=== PATIENT | male | born 1990 | race Caucasian/White ===

== ENCOUNTER 2024-03-25 08:22 | Observation (INO) ==
--- NOTE | 2024-03-20 14:27 | Anesthesiology Consultation ---
Date of Service March 20, 2024 Assessment & Plan (1) Encounter for pre-operative examination: - Infectious disease screening: Per assessment on 03/20/24: No known recent infectious disease contacts or current infectious disease symptoms. - Hx PONV: Per patient, good response with previous scope patch use. Will order scope patch for DOS. Chart Review Chart Review: Acceptable Risk for Surgery and Patient NOT seen in Pre Admission Testing Consults Requested none ASA ASA2 Proposed Anesthesia Anesthesia Type: General Risk / Benefits Reviewed With: PT / POA / Parent / Guardian, Accepts Plan and Informed Consent Obtained History Surgery Operation Date: 03/25/24 10:05 Proposed Procedures p L5-S1 Revision Discectomy, L5-S1 Lumbar Fusion, Spinal Cord Monitoring - Jimmy Mendoza DO Height/Weight Height: 6 ft Weight: 95.254 kg Allergies Allergy/AdvReac Type Severity Reaction Status Date / Time ciprofloxacin Allergy Severe Anaphylaxis Verified 03/25/24 08:42 Medications Home Medications Medication Instructions Recorded Confirmed Last Taken acetaminophen 500 mg tablet 1,000 mg PO Q6H PRN Pain 03/20/24 03/25/24 03/23/24 cholecalciferol (vitamin D3) 125 125 mcg PO QAM 03/20/24 03/25/24 03/24/24 08:00 mcg (5,000 unit) tablet (Vitamin D3) famotidine 40 mg tablet 40 mg PO DAILY PRN Acid Reflux 03/20/24 03/25/24 Unknown lisinopril 10 mg tablet 10 mg PO QAM 03/20/24 03/25/24 03/24/24 08:00 pantoprazole 40 mg tablet,delayed 40 mg PO QAM 03/20/24 03/25/24 03/24/24 08:00 release Active Medications Generic Name Dose Route Start Last Admin Trade Name Freq PRN Reason Stop Dose Admin Celecoxib 200 mg 03/25/24 06:00 03/25/24 09:03 Celebrex 200 Mg Cap PO 03/25/24 18:00 200 mg PREOP ETHAN Administration Gabapentin 300 mg 03/25/24 06:00 03/25/24 09:03 Gabapentin 300 Mg Cap PO 03/25/24 18:00 300 mg PREOP ETHAN Administration Lactated Ringer's 1,000 mls @ 15 mls/hr 03/25/24 06:00 03/25/24 09:03 Lr IV 03/26/24 05:59 15 mls/hr .Q24H ETHAN Administration Lactated Ringer's 1,000 mls @ 60 mls/hr 03/25/24 06:00 03/25/24 09:04 Lr IV 03/25/24 22:39 Not Given .[id number] ETHAN Scopolamine 1 patch 03/25/24 06:00 03/25/24 09:04 Scopolamine 1 Mg Tdsy TD 03/25/24 18:00 1 patch PREOP ETHAN Administration NPO Date Last Intake of Fluids: 03/25/24 Time Last Intake of Fluids: 07:00 Last Intake of Fluids Comment: sip water w/ meds Date Last Intake of Solids: 03/24/24 Time Last Intake of Solids: 23:00 Past Medical History Medical History Chronic back pain History of kidney stones Ulcerative colitis GERD (gastroesophageal reflux disease) Hypertension Exercise / Class Metabolic Activity II 4-5 Yardwork/Stairs/Walk up hill Past Family History Family History Other No family history of adverse response to anesthesia Past Surgical History Surgical History History of postoperative nausea and vomiting Previous scopolamine patch with most recent back surgery "and it worked w onderfully, I didn't get sick at all" History of surgery x3 Right 2nd/3rd digit repair (r/t table saw trauma) History of esophagogastroduodenoscopy (EGD) History of colonoscopy History of wisdom tooth extraction History of tonsillectomy History of lumbar discectomy 02/26/24, [facility] [employer] with Dr. Mendoza Past Anesthesia History No Hx of Anesthesia Complications and No Family Hx of Anesthesia Complications History of PONV No Hx of PONV and No Hx of Motion Sickness Social History Smoking Status: Never smoker Do You Dip or Chew Tobacco: No Hx Alcohol Use: Yes Alcohol type: beer alcohol intake frequency: holidays/special occasions only Hx Substance Use: No substance use type: does not use Physical Exam Vital Signs Last Vital Signs Temp 36.7 C 03/25/24 08:46 Pulse 96 H 03/25/24 08:46 Resp 20 08/14/24 08:46 BP 139/96 03/25/24 08:46 Pulse Ox 96 03/25/24 08:46 O2 Del Method Room Air 03/25/24 08:46 Constitutional no acute distress and not cachectic ENMT Mouth: no dentition abnormality Thyromental Distance: > or= 3.5 Finger Breadths Mallampati Class: II Neck normal visual inspection, trachea midline and + facial hair; neck extension not limited Respiratory normal respiratory effort Auscultation: lungs clear to auscultation bilaterally Cardiovascular Rate/Rhythm: regular rate and regular rhythm Heart Sounds: no murmur Vessels: no carotid bruit Musculoskeletal Spine: normal cervical ROM and no pain with cervical ROM Extremities: extremities normal to inspection; full ROM of extremities Neurologic moves all extremities Motor/Sensory: + sensory deficit Psychiatric Orientation: alert and oriented x 3 Testing Laboratory Results Blood Type O Positive 03/25/24 08:40 Antibody Screen NEGATIVE 03/25/24 08:40 7 WBC 5.63 H/H 14.8/44.5 PLATELETS 325 SODIUM 140 POTASSIUM 3.9 CHLORIDE 106 CO2 27.5 BUN 12.0 CREATINI1.00NE GLUCOSE 93 PT 12.6 INR 1.18 UA negative Electrocardiogram Date: 02/11/24 SR at 60bpm. NS TWA. "Similar to ECG 11/28/2022" per globe tester comparison. Chest X-Ray Date: 02/11/24 Findings: + NAD
[2024-03-25] MEDS ORDERED: fentaNYL citrate PF 100 MCG/2 ML VIAL ONE (08:27)
[2024-03-25] MEDS ORDERED: ONDANSETRON INJ 2 MG/ML 2 ML VIAL ONE (08:27)
[2024-03-25] MEDS ORDERED: DEXAMETHASONE SOD INJ 4 MG/ML VIAL ONE (08:27)
[2024-03-25] MEDS ORDERED: PROPOFOL IV EMULSION 10 MG/ML 20 ML VIAL IV ONE (08:27)
[2024-03-25] MEDS ORDERED: LIDOCAINE 2% 2 ML VIAL/AMP(20MG/ML) INFIL ONE (08:27)
[2024-03-25] MEDS ORDERED: ROCURONIUM BROMIDE 10 MG/ML 5 ML VIAL IV ONE (08:27)
[2024-03-25] MEDS ORDERED: KETAMINE HCL 10MG/ML SYR ONE (08:27)
[2024-03-25] MEDS ORDERED: MIDAZOLAM HCL 1 MG/ML 2ML VIAL ONE (08:27)
[2024-03-25] MEDS ORDERED: SUGAMMADEX SODIUM 200 MG/2 ML VIAL IV ONE (08:27)
[2024-03-25] MEDS: CeleBREX 200 MG CAP PO SCH (09:03)
[2024-03-25] MEDS: GABAPENTIN 300 MG CAP PO SCH (09:03)
[2024-03-25] MEDS: LR 15ML/HR IV SCH (09:03)
[2024-03-25] MEDS: Scopolamine 1 MG TDSY TD SCH (09:04)
[2024-03-25] MEDS: LR 60ML/HR IV SCH (09:04)
[2024-03-25] MEDS ORDERED: FLUMAZENIL 0.1 MG/1 ML 10 ML VIAL IV PRN (09:41)
[2024-03-25] MEDS ORDERED: NALOXONE HCL 0.4 MG/1 ML VIAL/CARP IV PRN ×2 (09:41→14:23)
[2024-03-25] MEDS ORDERED: ATROPINE SULFATE 0.1 MG/ML 10ML SYR IV PRN (09:41)
[2024-03-25] MEDS ORDERED: LABETALOL HCL IV 5 MG/ML 20ML IV PRN (09:41)
[2024-03-25] MEDS ORDERED: PROMETHAZINE HCL 6.25 MG in SODIUM CHLORIDE 0.9% 50 ML IV PRN (09:41)
[2024-03-25] MEDS ORDERED: ePHEDrine sulfate 50 MG/ML AMP IV PRN (09:41)
[2024-03-25] MEDS ORDERED: HYDROmorphone INJ 1 MG/ML SYRINGE IV PRN (09:41)
--- NOTE | 2024-03-25 10:18 | History & Physical Bridge Note ---
Date of Service March 25, 2024 History & Physical Bridge Note I have examined the patient, reviewed the History & Physical and in the interval since the performance of the History & Physical I have noted the following changes of clinical significance: no changes noted
--- NOTE | 2024-03-25 10:19 | History & Physical Report ---
Date of Service March 25, 2024 Assessment & Plan (1) Lumbar disc herniation with radiculopathy: Plan: Revision discectomy L5-S1 lumbar fusion L5-S1 History of Present Illness Chief Complaint: Back and left leg pain Primary Care Provider: RACHNA Newsome This is a 34-year-old male known to the presents with recurrent disc herniation is here for surgical invention. Allergies Allergy/AdvReac Type Severity Reaction Status Date / Time ciprofloxacin Allergy Severe Anaphylaxis Verified 03/25/24 08:42 Home Medications Medication Instructions Recorded Confirmed Type acetaminophen 500 mg tablet 1,000 mg PO Q6H PRN Pain 03/20/24 03/25/24 History cholecalciferol (vitamin D3) 125 125 mcg PO QAM 03/20/24 03/25/24 History mcg (5,000 unit) tablet (Vitamin D3) famotidine 40 mg tablet 40 mg PO DAILY PRN Acid Reflux 03/20/24 03/25/24 History lisinopril 10 mg tablet 10 mg PO QAM 03/20/24 03/25/24 History pantoprazole 40 mg tablet,delayed 40 mg PO QAM 03/20/24 03/25/24 History release Past Med/Surg History Problem List (Updated 03/25/24 @ 10:19 by Jimmy Mendoza DO) Lumbar disc herniation with radiculopathy Encounter for pre-operative examination Medical History Chronic back pain History of kidney stones Ulcerative colitis GERD (gastroesophageal reflux disease) Hypertension Surgical History History of postoperative nausea and vomiting Previous scopolamine patch with most recent back surgery "and it worked wonderfully, I didn't get sick at all" History of surgery x3 Right 2nd/3rd digit repair (r/t table saw trauma) History of esophagogastroduodenoscopy (EGD) History of colonoscopy History of wisdom tooth extraction History of tonsillectomy History of lumbar discectomy 02/26/24, [facility] [employer] with Dr. Mendoza Family History Other No family history of adverse response to anesthesia Social History Smoking Status: Never smoker Second Hand Exposure: No; Do You Dip or Chew Tobacco: No; Tobacco Cessation Education Requested by Patient: No Hx Alcohol Use: Yes Alcohol type: beer Hx Substance Use: No Preferred Language: Cook Islander Communication Ability: Effective Court Deputy Required: No Beliefs That Will Affect Care: None Current Living Situation: Spouse and Family Current Living Situation Comment: Lives with and 3 kids Other Information That Helps Us Care for You: No Feels Safe at Home: Yes Safety Concerns: Feels Safe At This Time Assistive Devices: None Physical Exam Physical Exam: Patient is alert and oriented heart regular in rhythm lungs clear Results & Data Results & Data Vital Signs (Past 12 Hours) Vital Signs Temp Pulse Resp BP Pulse Ox O2 Del Method 03/25/24 08:46 36.7 C 96 H 20 139/96 96 Room Air
[2024-03-25] MEDS: ceFAZolin 2000MG 2,000 MG/15 ML SYR IV SCH ×2 (10:42→18:02)
[2024-03-25] MEDS: BUPIVACAINE/EPINEPHRINE 0.25% 1:200,000 30 ML VIAL ONE (11:21)
[2024-03-25] MEDS: ceFAZolin 330 MG/ML 1 GM VIAL ONE (11:22)
[2024-03-25] MEDS ORDERED: PHENYLEPHRINE 100MCG/ML 10ML SYR IV ONE (11:57)
[2024-03-25] MEDS: FLOSEAL HEMOSTATIC MATRIX 10ML TOP ONE (12:27)
--- NOTE | 2024-03-25 12:44 | Operative Report ---
Post Operative Report Pre & Post Diagnosis Operation Date: 03/25/24 10:05 Pre-Op Diagnosis: Recurrent Herniation of Lumbar Disc Post-Op Diagnosis: Recurrent Herniation of Lumbar Disc I identified the patient and participated in the time-out.: Yes Procedure Operation Date: 03/25/24 10:05 Actual Procedures 1. Revision decompression with bilateral medial facetectomies and foraminotomies L5-S1. #2 posterior spinal fusion L5-S1. #3 placed posterior instrumentation L5-S1. #4 interbody fusion L5-S1. #5 placement Spira 13 x 26 mm x 2 at L5-S1. For 6 placement locally harvested morselized autograft and posterior gutters. #7 placement fusion collagen sponge, with Koros bone graft in the posterior lateral gutters and os design and interbody space. #8 place ment of versa wrap on the exposed dura. Surgeon Jimmy Mendoza DO Automatic Steel Tie Adjuster None Estimated Blood Loss 100 Findings Consistent with Post-Op Diagnosis Specimens None Indications This is a 34-year-old male who presents with recurrent disc herniation L5-S1 with severe pain and is here for surgical intervention. Description of Procedure Patient was met with identified informed consent obtained. Patient was then taken to the operative suite underwent a patient placed in a prone position on the Titi table on top of the Brad frame. All bony prominences well-padded eyes inspected to ensure no external pressure placed upon the. This point the lumbar spine was prepped and draped in normal sterile fashion. Utilizing pr evious incision site sharp dissection with assistance of Bovie cautery from down to and exposing the remaining lamina and transverse processes of L5 and the sacral ala bilaterally. Caballero cephalad fashion complete laminectomy of L5 was performed including bilateral medial facetectomies and foraminotomies dressing all lateral recess foraminal stenosis as well as a massive recurrent disc herniation on the left that had migrated out into the foramen. After complete decompression pedicle screws were placed in L5 and S1 was bilaterally with assistance of fluoroscopy and appropriate sized mckinley placed. By way the transforaminal approach on the left a discectomy of L5-S1 was performed endplates guided to subcortical bleeding bone and a 13 x 26 mm Spira cage filled with os design tapped in position. I then proceeded to the right transforaminal region at L5-S1. Discectomy performed. Endplates burred to subcortical bleeding bone and a second 13 x 26 mm Spira cage filled with os design bone graft tapped position. The rods then locked in final position bilaterally. The transverse processes of L5 and the sacral ala burred to subcortical bleeding bone. Infuse collagen sponge, with Koros and local autograft placed in the posterior lateral gutters. Versa wrap placed on the exposed dura. 15 round ELMER drain inserted. The incision was then closed with 1 Vicryl the fascia 2-0 Vicryl subcutaneously and 4 Monocryl for final skin closure. Steri-Strips sterile dressing placed. Patient waken taken PACU stable condition. Please note spinal cord monitoring was utilized at the procedure no changes noted. Im ordering 20 grams of Triple Peterson Collagen Powder ([employer] [id number]) to treat an incision wound that was caused by a spine procedure. The incision is approximately 2 cm(W) x 4 cm(L) into the joint (D) in size and is a full thickness wound. Triple Peterson collagen comes in 1 gram packets so 20 packets were ordered. Given the size of the wound, with light to moderate exudate I c hose to order a 20 day supply. The patient will be provided instructions for proper application of the collagen wound kit. The patient will be asked to apply the collagen powder daily and then cover it with sterile dressings dispensed. Collagen was selected as I expect the collagen to attract monocytes and fibroblasts, act as a sacrificial substrate for MMPs, and ultimately proved a matrix for tissue and vessel growth. The collagen will act as a primary dressing in this scenario. It is medically necessary for proper healing of these wounds to improve bioavailability and contact with each wound surface, this is also to help prevent infection of wounds and promote healing ultimately leading to a better healing outcome and limit the risk of infection. I attest to the content of the Intraoperative Record and any orders documented therein. Any exceptions are noted below.
[2024-03-25] MEDS: ONDANSETRON INJ 2 MG/ML 2 ML VIAL IV PRN ×2 (13:13→18:42)
[2024-03-25] MEDS: fentaNYL citrate PF 100 MCG/2 ML VIAL IV PRN (13:15)
--- NOTE | 2024-03-25 13:53 | Anesthesiology Progress Note ---
Date of Service March 25, 2024 Anesthesia Post Procedure Vital Signs Vital Signs: Temp Pulse Pulse Resp BP Pulse Ox O2 Del Method 03/25/24 13:45 88 18 126/73 96 Nasal Cannula 03/25/24 13:35 83 16 126/73 98 Nasal Cannula 03/25/24 13:25 90 20 124/72 98 Nasal Cannula 03/25/24 13:15 94 H 14 111/69 97 Nasal Cannula 03/25/24 13:05 83 20 111/62 97 Nasal Cannula 03/25/24 12:54 36.6 C 96 H 18 110/59 L 95 Nasal Cannula 03/25/24 08:46 36.7 C 96 H 20 139/96 96 Room Air O2 Flow Rate 03/25/24 13:45 2 03/25/24 13:35 2 03/25/24 13:25 4 03/25/24 13:15 4 03/25/24 13:05 4 03/25/24 12:54 4 03/25/24 08:46 Pain Intensity Left Leg: Pain Intensity: 6 Back: Pain Intensity: 9 Transfer of Care Handoff Completed per policy Notes Mental Status: alert / awake / arousable Patient Amnestic to Procedure: Yes Nausea / Vomiting: adequately controlled Pain: adequately controlled Airway Patency, RR, SpO2: stable & adequate BP & HR: stable & adequate Hydration State: stable & adequate Anesthetic Complications: no major complications apparent
--- NOTE | 2024-03-25 14:11 | Fluoroscopy Report ---
FL lumbar spine 2-3V CLINICAL HISTORY: L5-S1 DECOMPRESSION COMPARISON STUDY: None. FLUOROSCOPY TIME: 20 seconds. FLUOROSCOPY IMAGES: 2 Ka,r: 14.9 mGy FINDINGS: Posterior decompression and fusion at L5-S1 with pedicle screws and rods. Disc spacers are placed. The hardware is intact. IMPRESSION: Fluoroscopic assistance as above. ACT 112: Negative or not required by law. Electronically signed by: Frank Cosme M.D. 03/25/2024 2:08 PM
[2024-03-25] MEDS ORDERED: hydrOXYzine HCl 25 MG TAB PO PRN (14:23)
[2024-03-25] MEDS ORDERED: LORazepam 0.5 MG in SYRINGE 0.25 ML IV PRN (14:23)
[2024-03-25] MEDS ORDERED: diphenhydrAMINE Capsule 25 MG CAP PO PRN (14:23)
[2024-03-25] MEDS ORDERED: ACETAMINOPHEN 500 MG TAB PO PRN (14:23)
[2024-03-25] MEDS ORDERED: FAMOTIDINE 20 MG TAB PO PRN (14:23)
[2024-03-25] MEDS ORDERED: ALUMINUM/MAGNESIUM SUSP 30 ML UDC PO PRN (14:23)
[2024-03-25] MEDS ORDERED: METOCLOPRAMIDE HCL INJ 5 MG/ML 2 ML VIAL IV PRN (14:23)
[2024-03-25] MEDS ORDERED: PROMETHAZINE 12.5 MG/50.5 ML BAG IV PRN (14:23)
[2024-03-25] MEDS ORDERED: DO NOT ADMINISTER FLU VACCINE PRN (14:23)
[2024-03-25] MEDS ORDERED: SOD PHOSPHATE/SOD BIPHOSPHATE ENEMA 132 ML BTL PR PRN (14:23)
[2024-03-25] MEDS ORDERED: HYDROmorphone INJ 0.5 MG/0.5 ML SYR IV PRN (14:23)
[2024-03-25] MEDS ORDERED: DO NOT ADMINISTER PNEUMOCOCCAL VACCINE PRN (14:23)
[2024-03-25] MEDS ORDERED: bisacodyL 10 MG SUPP PR PRN (14:23)
[2024-03-25] MEDS ORDERED: ACETAMINOPHEN 1,000 MG/100 ML VIAL IV PRN (14:23)
[2024-03-25] MEDS ORDERED: FAMOTIDINE 40 MG TABLET PO PRN (14:23)
[2024-03-25] MEDS ORDERED: LORazepam 0.5 MG TAB PO PRN (14:23)
[2024-03-25] MEDS ORDERED: MAGNESIUM HYDROXIDE SUSP 30 ML UDC PO PRN (14:23)
[2024-03-25] MEDS: HYDROmorphone INJ 1 MG/ML SYRINGE IV PRN (14:38)
[2024-03-25] MEDS: LACTATED RINGER'S 1,000 ML IV SCH (14:42)
[2024-03-25] MEDS: KETOROLAC 30 MG/ML VIAL IV SCH (14:59)
[2024-03-25] MEDS: Scopolamine CHECK PATCH PLACEMENT SCH (16:17)
[2024-03-25] MEDS: oxyCODONE HCL IR 5 MG TAB (IMMEDIATE RELEASE) PO PRN (16:49)
[2024-03-25] MEDS: ONDANSETRON 4 MG OD TAB PO PRN (16:52)
[2024-03-25] MEDS: DOCUSATE SODIUM/SENNA 50/8.6MG TAB PO SCH (20:09)
[2024-03-26] MEDS: POLYETHYLENE (MIRALAX) 17 GM PACK PO SCH (05:37)
[2024-03-26 07:16] LABS: Basophils # (auto) 0.01 K/uL (0.00-0.20); Basophils % (auto) 0.1 %; Eosinophils # (auto) 0.02 K/uL (0.00-0.50); Eosinophils % (auto) 0.2 %; Hematocrit (blood only) 39.9 % (42.0-52.0); Hemoglobin 13.7 g/dl (14.0-18.0); Immature Granulocytes # (auto) 0.28 K/uL (0.01-0.20); Immature Granulocytes % (auto) 2.3 %; Lymphocytes # (auto) 1.95 K/uL (1.20-3.40); Lymphocytes % (auto) 16.1 %; Mean Corpuscular Hgb Conc 34.3 g/dL (32.0-36.0); Mean Corpuscular Volume 87.5 fL (80.0-100.0); Mean Platelet Volume 9.3 fL (9.4-12.4); Monocytes # (auto) 1.17 K/uL (0.11-0.59); Monocytes % (auto) 9.6 %; Neutrophils # (auto) 8.71 K/uL (1.40-6.50); Neutrophils % (auto) 71.7 %; Platelet Count 272 K/uL (130-400); RDW Coefficient of Variation 12.1 % (11.5-14.5); RDW Standard Deviation 38.8 fL (36.4-46.3); Red Blood Count 4.56 M/uL (4.70-6.10); White Blood Count 12.14 K/ul (4.8-10.8)
[2024-03-26 07:27] LABS: BUN Creatinine Ratio 13.4 (10-20); Calcium 9.3 mg/dl (8.6-10.3); Creatinine Clr Calc Pharmacy 126.6 ml/min; Est GFR (African American) 115.9 ml/min
[2024-03-26] MEDS: PANTOprazole 40 MG TAB PO SCH (08:17)
[2024-03-26] MEDS: lisinopril 10 MG TAB PO SCH (08:17)
[2024-03-26] MEDS: CHOLECALCIFEROL 125 MCG (5,000 UNITS) TAB PO SCH (08:17)
[2024-03-26] MEDS: dexAMETHasone 6 MG in SYRINGE 0 ML IV SCH (08:18)
--- NOTE | 2024-03-26 08:24 | Orthopedic Progress Note ---
Date of Service March 26, 2024 Assessment & Plan (1) Lumbar disc herniation with radiculopathy: Plan: At this time initiate physical therapy monitor his ELMER output over the discharge over the next few days. Admission and Anticipated Discharge Date Admission Date: March 25, 2024 Subjective Patient back pain is controlled leg symptoms markedly improved Physical Exam Physical Exam: Patient is sitting up at the bedside. Is scheduled to testing. Is comfortable. Results & Data Vital Signs (Past 12 Hours) Vital Signs Temp Pulse Pulse Resp BP Pulse Ox O2 Del Method 03/26/24 06:56 36.6 C 73 16 129/74 97 Room Air 03/26/24 02:56 36.5 C 82 16 114/62 96 Room Air 03/25/24 22:44 36.8 C 89 16 125/69 94 Room Air
[2024-03-26] MEDS: traMADol HCL 50 MG TABLET PO PRN (09:48)
--- NOTE | 2024-03-27 09:45 | Discharge Summary ---
Date of Service March 27, 2024 Admission HPI Per Admitting Provider This is a 34-year-old male known to the presents with recurrent disc herniation is here for surgical invention. Principal Diagnosis Recurrent lumbar disc herniation Discharge Data Allergies Allergy/AdvReac Type Severity Reaction Status Date / Time ciprofloxacin Allergy Severe Anaphylaxis Verified 03/25/24 08:42 Procedures Performed Operation Date: 03/25/24 10:05 Actual Procedures p L5-S1 Revision Discectomy, L5-S1 Lumbar Fusion, Spinal Cord Monitoring(Not Applicable) - Jimmy Mendoza DO Ordered Studies 03/25/24 10:05 [place] lumbar spine 2-3V Routine Hospital Course (1) Lumbar disc herniation with radiculopathy: Patient went lumbar decompression fusion tolerated so staying the orthopedic floor postoperative. Postop he progressed very nicely. Marked improvement of his leg symptoms. Back pain controlled. ELMER drain decreased probably. Excellent strength testing. Subsidy discharged home. Discharge orders and instructions found in chart for further review. Total Time Total Time Spent Total Time Spent (In Minutes): 20 minutes Discharge Plan Discharge Items Patient Disposition: Home - Self-Care Reason For Visit: Recurrent Herniation of Lumbar Disc, Intervertebra Discharge Diagnosis: Recurrent lumbar disc herniation L5-S1 Activity: As commented below Non-emergency contact: Primary Care Provider Call non-emergency contact if: you have any medication questions Follow-up/Referrals: Ike Kennedy CRNP [Primary Care Provider] - Diet: Regular Addtl Attending Provider Instructions: ACTIVITY RECOMMENDATIONS: SELF CARE INSTRUCTIONS AFTER THORACIC/LUMBAR FUSIONS 1. You may walk to your tolerance. It is good exercise for your legs and back. Expect some back and intermittent leg aches and pains. 2. You may perform "counter-top" level activities (make a sandwich, eitan with a project, etc.). 3. No bending or lifting of more than 10 pounds or back twisting of any nature (roll like a log when turning in bed). 4. You may ride in a car for 20-30 minutes at a time. No driving until after your first visit with your doctor. 5. Frequent changes of position and restricting sitting to 30 minutes at a time will help limit the amount of back spasms and stiffness you may experience. 6. You may discontinue the use of ambulatory aids (cane, crutches, etc.) once your strength and confidence allow. 7. You may perinatal coordinator the shower and let water strike your incision when you arrive home at least once daily. Do not take a tub bath, sit in a hot tub or go into a swimming pool until after your first recheck in the office. SPECIAL CARE INSTRUCTIONS: VERY IMPORTANT TO READ AND REVIEW A. Your surgical incision has been closed with a cosmetic suture under the skin that will dissolve in about 6 weeks. In 14 days, you can use a pair of clean scissors and cut the suture that is left outside of the skin at the ends of your incision. 1. The small skin tapes can be removed 7 days after surgery if they have not fallen off by that point. 2. You may keep the wound open to air as much as possible to promote healing after post-op day number 5 unless told otherwise by your doctor. 3. If you think the wound looks like it is becoming infected (redness or worsening drainage) and/or you are experiencing fever, chill or worsening back pain and muscle spasms, contact the office so that we may evaluate you as soon as possible. B. Complications are uncommon, but please contact us if you have any signs or symptoms of: 1. wound infection (fever higher than 102.5 degrees F, redness, separation of wound, drainage, or increasing pain from the incision) 2. blood clots in legs (pain, swelling, redness and warmth in legs) 3. urinary tract infection (fever higher than 102.5 degrees F, burning upon urination or increased frequency of urination) 4. nerve problems (inability to walk on your toes or heels, numbness, loss of bowel or bladder control) 5. any other symptoms that concern you C. Please call the office at if you have any concerns or questions about your operation or recovery. D. No smoking! Smoking drastically decreases the chance of a solid fusion. E. Do not take any anti-inflammatory medications (Indocin, Advil, Motrin, Aspirin, Naprosyn, etc.) as these may inhibit the chance of a solid fusion. Tylenol is okay to take for pain. MANAGING PAIN AFTER SPINAL SURGERY 1. Narcotic medication is intended for short-term use and will be provided for surgical pain. Surgical pain usually lasts for a period of 4-6 weeks. Narcotic medication includes Percocet, Vicodin, Darvocet, Tylenol #3 or Lortab. 2. Longer-term pain is more appropriately treated with non-narcotic medication such as Tylenol ES. 3. Muscle spasm is not appropriately treated with narcotics. Muscle relaxers such as Soma, Flexeril or Skelaxin can be used along with Tylenol ES. 4. Remember that we all live with some "aches and pains". This is not unusual or uncommon after an injury or as we get older. a. Back pain is expected and may include muscle spasms for 4 to 6 weeks after surgery. The pain should gradually improve. If the pain worsens for no apparent reason, please contact the office. b. Intermittent leg pain may also be experienced and should not be concerned about unless it worsens for no apparent reason. If so, please contact the office. 5. We will provide appropriate medication within the normal guidelines of their prescribed use. We will also be very cautious and aware of potential abuse and extended duration of patients' medication needs. a. Pain medications are for your comfort and to assist with sleep and rest so that the tissue can heal. They are not provided in order to return to normal activity and should not be used through the day. To do so or worsening pain at night can result from ongoing tissue damage and development of tolerance to the prescribed medicine. 6. Please allow 2-3 days to process refills. Prescriptions will not be mailed but must be picked up at the office. FOLLOW UP VISIT: Keep your scheduled follow-up appointment. Any questions, please call the office at . Pending Studies at Discharge: No Stand-Alone Forms: My [facility] [employer], Smoking Cessation Medications and DC Order Prescriptions: New tramadol 50 mg tablet 50 mg PO Q6H PRN (Reason: pain, moderate) Qty: 30 0RF oxycodone 5 mg tablet 5 mg PO Q6H PRN (Reason: pain) Qty: 30 0RF Continued pantoprazole 40 mg Tablet,Delayed Release (Dr/Ec) 40 mg PO QAM lisinopril 10 mg Tablet 10 mg PO QAM famotidine 40 mg Tablet 40 mg PO DAILY PRN (Reason: Acid Reflux) cholecalciferol (vitamin D3) [Vitamin D3] 125 mcg (5,000 unit) Tablet 125 mcg PO QAM acetaminophen 500 mg Tablet 1,000 mg PO Q6H PRN (Reason: Pain) Discharge Orders: Discharge Order (Routine); Ordered 03/27/24 Ordered By: Jimmy Mendoza Admission Data Admit Date/Time: 03/25/24 12:48 Attending Provider: Jimmy Mendoza Admit Provider: Jimmy Mendoza Primary Care Provider: Ike Kennedy
== END 2024-03-27 13:47 | disposition home or self-care (01) | DRG 455 ==
LOC: ASU 08:22 → INTOOBSV 12:48 → 3N 12:48